=== PATIENT | female | born 1985 | race Caucasian/White ===

== ENCOUNTER 2018-10-05 07:41 | Day surgery (SDC) | payer OTHER ==
[~2018-10-05] VITALS: Ht 157.5 cm; Wt 2.2 kg
[~2018-10-05 07:41] MED LIST: AMOX500T PO; IBUP-1114 PO; LEVO125T4 PO
[2018-10-05] MEDS ORDERED: dexameTHASONE 4 MG/ML 1ML VIAL (J1100) IV ONE (08:00)
[2018-10-05] MEDS ORDERED: AMPICILLIN SOD/SULBACTAM SOD 3 GM in D5W MINI-BAG PLUS 100 ML IV ONE (08:00)
[2018-10-05 08:32] LABS: URINE PREG TEST NEGATIVE (NEGATIVE)
[2018-10-05] MEDS ORDERED: CHLORHEXIDINE GLUCONATE 0.12 % 15ML UDC (PERIDEX ORAL RINSE) As Ordered ONE (08:48)
[2018-10-05] MEDS ORDERED: LIDOCAINE 2% W/ EPINEPHRINE 1.7 ML DENTAL INJ As Ordered ONE (08:48)
[2018-10-05] MEDS ORDERED: LR 1,000 ML IV ONE (09:00)
[2018-10-05] MEDS ORDERED: LIDOCAINE 2% INJ 100 MG/5 ML SDV (FOR ANES.) As Ordered ONE (09:15)
[2018-10-05] MEDS ORDERED: PROPOFOL 200 MG/20 ML VIAL As Ordered ONE (09:15)
[2018-10-05] MEDS ORDERED: fentaNYL 100 MCG/2 ML INJECTION (J3010) As Ordered ONE ×3 (09:15→10:31)
[2018-10-05] MEDS ORDERED: SUCCINYLCHOLINE 100 MG/5 ML SYRINGE (J0330) As Ordered ONE (09:15)
[2018-10-05] MEDS ORDERED: ONDANSETRON 4MG/2ML VIAL (J2405) As Ordered ONE (09:15)
[2018-10-05] MEDS ORDERED: MIDAZOLAM INJ 2 MG/2 ML VIAL (J2250) As Ordered ONE (09:15)
[2018-10-05] MEDS ORDERED: ROCURONIUM BROMIDE 50 MG/5 ML VIAL As Ordered ONE (09:15)
[2018-10-05] MEDS ORDERED: DESFLURANE 240 ML INHALANT As Ordered ONE (09:58)
[2018-10-05] MEDS ORDERED: oxyCODONE 5MG TAB PO PRN (10:30)
[2018-10-05] MEDS ORDERED: METOCLOPRAMIDE INJ 10MG/2ML VIAL (J2765) IV PRN (10:30)
[2018-10-05] MEDS ORDERED: ONDANSETRON 4MG/2ML VIAL (J2405) IV PRN (10:30)
[2018-10-05] MEDS ORDERED: MEPERIDINE INJ 25 MG/ML VIAL (J2175) IV PRN (10:30)
[2018-10-05] MEDS ORDERED: fentaNYL 100 MCG/2 ML INJECTION (J3010) IV PRN (10:30)
[2018-10-05] MEDS ORDERED: LR 1,000 ML IV SCH (10:30)
[2018-10-05 11:05] VITALS: BP 121/65
--- NOTE | 2018-10-07 11:15 | RO ---
DATE OF PROCEDURE: 10/05/2018 SURGEON: Ignacio Nayak DMD, MD RUG RENOVATOR: PREOPERATIVE DIAGNOSIS: Severe dental anxiety, hypothyroidism, grossly decayed teeth number 1, 14, 16, 17, and 32. POSTOPERATIVE DIAGNOSIS: Status post severe dental anxiety, hypothyroidism, grossly decayed teeth number 1, 14, 16, 17, and 32. PROCEDURE PERFORMED: Surgical extraction of teeth number 1, 14, 16, 17, and 32. ANESTHESIA USED: General endotracheal anesthesia via nasal ray. SPECIMENS: Teeth for gross only. INDICATIONS FOR SURGERY: Mrs. Raissa Tate is a pleasant 33-year-old female who was referred to my office from her dentist for evaluation of extraction of teeth number 14 and 17. However, she also complains of pain stemming from the other teeth areas; namely number 1, 16, and 32. She also does have caries in other teeth, including tooth #5. However, she does not want to have any of those teeth removed at this time and wants them to be restored with potentially root canal. So, the only teeth that she is interested in having removed are 1, 14, 16, 17, and 32. PAST MEDICAL HISTORY AND MEDICATIONS: Reviewed. She has hypothyroidism, very severe dental anxiety where she was emotional throughout the first consultation. History and physical was performed and is in the patient's chart, and informed consent was obtained. We discussed local anesthesia and nitrous oxide in the office versus general anesthesia in an operating room (OR) setting. She elected to have the latter performed. History and physical and the informed consent were signed and are in the patient's chart. DESCRIPTION OF PROCEDURE: The patient presented to preoperative holding area. Any last-minute questions were addressed. History and physical and consent were updated. At that point, the patient was taken back to the operating room. She was laid supine on the operating room table. Ulnar nerve protectors were placed. Noninvasive cardiac monitors were applied. At that point, the patient underwent general anesthesia and was intubated with a nasal ray, which was secured to the patient's forehead. She was then prepped and draped in the usual sterile fashion. A time-out procedure was performed to identify the patient, the procedure, and any other precautions. Preoperative antibiotics and steroid were administered. At this point, a moist throat pack was inserted in the patient's oropharynx, followed by the administration of seven carpules of 2% lidocaine with 1:100,000 epinephrine as local infiltration blocks. A full-thickness flap was raised with a hockey-stick extension in teeth areas number 17 and 32. Buccal bone was removed to the furcation of the teeth, and the teeth were then luxated and delivered with forceps without any incident. Sockets were copiously irrigated and suctioned. Lingual cortex was intact. Inferior alveolar nerve was not noted. Flaps were closed with 3-0 chromic sutures. At this point, attention was then given teeth number 1, 14, 16, where a full-thickness flap was released in each indicated tooth area. A small amount of buccal bone was removed; and at this point, the teeth were then luxated and delivered with 150 forceps. All the sockets were curetted and irrigated. No sinus exposure was noted. Flaps were then closed with 3-0 chromic sutures. At this point, gauze hemostasis was easily achieved and observed. The oral cavity was irrigated and suctioned, the throat pack was removed, and the patient was then awakened from general anesthesia and taken back to the postanesthesia care unit (PACU). COMPLICATIONS: None to mention at time of surgery. ESTIMATED BLOOD LOSS: About 10 mL. DRAINS: There were no drains placed.
== END 2018-10-05 11:36 | disposition home or self-care (01) ==
LOC: M SDC 07:41
PROVIDERS: ATTEND Dentist
DX: K02.9 Dental caries, unspecified (principal); E03.9 Hypothyroidism, unspecified; Z79.899 Other long term (current) drug therapy; F17.210 Nicotine dependence, cigarettes, uncomplicated; E05.00 Thyrotoxicosis with diffuse goiter without thyrotoxic crisis or storm
CPT/HCPCS: 84703; 88300; D7210; D9223; J0330; J1100; J2250; J2405; J3010